=== PATIENT | female | born 1960 | race African-American/Black ===

== ENCOUNTER 2021-05-31 16:18 | Emergency (ER) | payer SELFPAY ==
[~2021-05-31] VITALS: Ht 180.3 cm; Wt 88.2 kg
[2021-05-31 16:52] VITALS: TEMP 97.6
[2021-05-31] MEDS ORDERED: NAPROSYN500 MG PO (18:13)
[2021-05-31] MEDS ORDERED: FLEXERIL 1010 MG/TAB PO (18:13)
[2021-05-31 18:45] VITALS: BP 154/80; PULSE 86
== END 2021-05-31 18:45 | disposition home or self-care (01) ==
LOC: COL.ER 16:18
DX: M54.50 Low back pain, unspecified (principal)
CPT/HCPCS: J1885

== ENCOUNTER 2024-01-20 03:48 | Emergency (ER) | payer SELFPAY ==
[~2024-01-20] VITALS: Ht 180.3 cm; Wt 86.4 kg
[~2024-01-20 03:48] MED LIST: FLEXERIL 1010 MG/TAB PO; NAPROSYN500 MG PO
[2024-01-20 03:57] VITALS: BP 145/97; PULSE 68; TEMP 98
[2024-01-20] MEDS ORDERED: Ketorolac 60 MG/2 ML VIAL IM ONE (04:15)
[2024-01-20] MEDS ORDERED: MOBIC 7.5MG7.5 MG PO (04:40)
[2024-01-20] MEDS ORDERED: Home Cyclobenzaprine 10 MG #2 TABS/PACK PO ONE (04:45)
== END 2024-01-20 05:17 | disposition home or self-care (01) ==
LOC: COL.ER 03:48
DX: M25.532 Pain in left wrist (principal); F32.A Depression, unspecified
CPT/HCPCS: J1885